=== PATIENT | female | born 1955 | race Two or more races ===

== ENCOUNTER 2018-08-21 01:01 | Inpatient (IN) | payer OTHER ==
[~2018-08-21] VITALS: Ht 165.1 cm; Wt 42.2 kg
[2018-08-21] VITALS (12 sets, daily range): BP systolic 107–129; BP diastolic 61–75
--- NOTE | 2018-08-21 01:10 | NUR ---
PHLEBOTOMY BEDSIDE FOR BLOOD DRAW
--- NOTE | 2018-08-21 01:12 | NUR ---
BEDSIDE FOR EVAL
[2018-08-21 01:23] LABS: CALCIUM, SERUM 7.9 mg/dL (8.5-10.1); CREATININE 1.9 mg/dL (0.6-1.3); POTASSIUM 3.7 mmol/L (3.5-5.1)
[2018-08-21 01:24] LABS: BASOPHILS # (AUTO) 0.1 /CMM (0.0-0.2); BASOPHILS % (AUTO) 0.6 % (0.0-2.0); EOSINOPHILS % (AUTO) 0.7 % (0.0-6.0); HEMATOCRIT 21 % (33-45); LYMPHOCYTES # (AUTO) 1.1 /CMM (0.8-4.8); LYMPHOCYTES % (AUTO) 8.2 % (20.0-44.0); MEAN CORPUSCULAR HGB CONC 31 g/dl (31.0-36.0); MEAN CORPUSCULAR VOLUME 74 fL (82-100); MONOCYTES # (AUTO) 0.8 /CMM (0.1-1.30); MONOCYTES % (AUTO) 6.1 % (2.0-12.0); NEUTROPHILS # (AUTO) 11.2 /CMM (1.8-8.9); NEUTROPHILS % (AUTO) 84.4 % (43.0-81.0); PLATELET COUNT (AUTO) 593 /CMM (150-450); WHITE BLOOD COUNT (AUTO) 13.3 K/uL (4.3-11.0)
[2018-08-21] MEDS ORDERED: IOHEXOL-300 100 ML VIAL IV ONE (01:25)
[2018-08-21] MEDS ORDERED: IV NS 0.9% 0 ML IV ONE (01:25)
[2018-08-21] MEDS ORDERED: CT SWABBABLE VALVE TRANS SET 1 EA INFUS.SET MC ONE (01:25)
--- NOTE | 2018-08-21 01:25 | NUR ---
[id number] FROM HOME C/C RUQ ABD PAIN RADIATING TO R SHOULDER SINCE 0900. PT DENIES CP, N/V/D. LBM 2 DAYS AGO, DENIES CONSTIPATION. PT STATES "IT HURTS MORE WHEN I BREATH". PT PLACED ON MONITOR AND POX. PT SAFETY AND COMFORT MEASURES IN PLACE. RR EVEN AND UNLABORED. PT NOTED TO BE IN MILD PAIN.
[2018-08-21 01:29] LABS: ALBUMIN 2.1 g/dL (3.4-5.0); BILIRUBIN,DIRECT 0.1 mg/dL (0.0-0.2); BILIRUBIN,TOTAL 0.1 mg/dL (0.2-1.0); TOTAL PROTEIN, SERUM 6.3 g/dL (6.4-8.2)
[2018-08-21 01:30] LABS: HEMOGLOBIN 6.7 g/dL (11.5-14.8)
[2018-08-21] MEDS ORDERED: MORPHINE SULFATE INJ 2 MG/ML DISP.SYRIN IV ONE (01:30)
[2018-08-21] MEDS ORDERED: IV NS 0.9% 1,000 ML BAG IV ONE (01:30)
[2018-08-21] MEDS ORDERED: MORPHINE SULFATE INJ 4 MG/ML DISP.SYRIN ONE (01:37)
[2018-08-21 02:44] LABS: LYMPHOCYTES % (MANUAL) 8 % (16-48); MONOCYTES % (MANUAL) 4 % (0-11.0); NEUTROPHILS % (MANUAL) 88 (42-76)
[2018-08-21] MEDS ORDERED: ACETAMINOPHEN 325 MG TABLET PO PRN (03:00)
[2018-08-21] MEDS ORDERED: MAG HYDROX/AL HYDROX/SIMETH 30 ML UDC PO PRN (03:00)
[2018-08-21] MEDS ORDERED: IV NS 0.9% 1,000 ML IV PRN (03:00)
[2018-08-21] MEDS ORDERED: TEMAZEPAM 15 MG CAPSULE PO PRN (03:00)
[2018-08-21] MEDS ORDERED: MAGNESIUM HYDROXIDE 30 ML UDC PO PRN (03:00)
[2018-08-21 03:32] LABS: APPEARANCE,URINE Clear (CLEAR); BILIRUBIN,URINE Negative (NEGATIVE); BLOOD, URINE Large Ery/uL (NEGATIVE); COLOR,URINE Yellow (YELLOW); KETONES,URINE Negative (NEGATIVE); LEUKOCYTE ESTERASE ,URINE Trace (NEGATIVE); NITRITE, URINE Positive (NEGATIVE); PH,URINE 6.5 (5.0-8.0); PROTEIN,URINE 30 mg/dl (NEGATIVE); UGLUCOSE Negative (NEGATIVE); UROBILINOGEN,URINE 0.2 EU/dL (0.2)
--- NOTE | 2018-08-21 03:55 | NUR ---
report given to juanita moffett for dona
[2018-08-21] MEDS ORDERED: CEFTRIAXONE 1GM BAG (ER ONLY) 1 GM/50 ML PIGGYBACK IV ONE (04:00)
[2018-08-21] MEDS ORDERED: CEFTRIAXONE 1GM BAG (ER ONLY) 50 ML IV ONE (04:04)
[2018-08-21 04:27] LABS: BACTERIA,URINE Many /HPF (None Seen); RBC,URINE 21-50 /HPF (0-2); SQUAMOUS EPITHELIAL CELL,UR Few /HPF (None Seen)
[2018-08-21] MEDS ORDERED: IV NS 0.9% 1,000 ML BAG IV STA (04:35)
[2018-08-21] MEDS ORDERED: METRONIDAZOLE 500MG/ NS 100ML 500 MG in PREMIX 1 EA IV SCH (05:00)
--- NOTE | 2018-08-21 05:00 | NUR ---
GENERAL SERVICE OFFICER ADMISSION NOTES [place] [facility] PATIENT IS ALERT AND ORIENTED X4, VERBALLY RESPONSIVE ABLE TO MAKE NEEDS KNOWN. BREATHING EVEN AND UNLABORED. NO SOB NOTED. TOLERATING ROOM AIR. CURRENTLY WITH NO COMPLAINTS OF PAIN OR DISCOMFORT. NO FACIAL GRIMACING. IV ON RIGHT AC G#18 INTACT AND PATENT. SKIN DRY AND WARM TO TOUCH. AFEBRILE. ORIENTED TO THE USE OF UNIT AMENITIES. BELONGINGS ACCOUNTED FOR. SAFETY MEASURES IN PLACE. CALL LIGHT WITHIN REACH. WILL CONTINUE TO MONITOR.
--- NOTE | 2018-08-21 05:09 | NUR ---
ALTERNATIVE DISPUTE RESOLUTION MEDIATOR NOTES PATIENT INFORMED OF SKIN ASSESSMENT WELL BLOOD TRANSFUSION. PER PATIENT "PLEASE NOT NOW, I HAVEN'T GOTTEN ANY SLEEP. TRY IN AN HOUR AGAIN." WILL COME BACK IN AN HOUR TO REASSESS.
--- NOTE | 2018-08-21 05:13 | NUR ---
COIL WRAPPER NOTES PER PATIENT, SHE DOES NOT TAKE ANY MEDS AT HOME.
[2018-08-21] MEDS ORDERED: METRONIDAZOLE 500MG/ NS 100ML 100 ML IV ONE (05:17)
--- NOTE | 2018-08-21 06:33 | NUR ---
PROGRAMS ASSISTANT NOTES 1 OF THE 2 PRBC TRANSFUSION STARTED. VSS. WILL CONTINUE TO MONITOR.
--- NOTE | 2018-08-21 06:40 | NUR ---
ANTITANK ASSAULT GUNNER NOTES WOKE PATIENT UP AND OFFERED TO DO SKIN ASSESSMENT AGAIN. PER PATIENT, SHE WOULD LIKE TO SLEEP STILL AND WOULD LIKE IT LATER ON. WILL ENDORSE TO ONCOMING NURSE.
[2018-08-21] MEDS: MORPHINE SULFATE INJ 2 MG/ML DISP.SYRIN IV PRN ×3 (07:14→23:52)
--- NOTE | 2018-08-21 07:23 | NUR ---
DINKEY LOCOMOTIVE ENGINEER NOTES BLOOD TRANSFUSION STILL TRANSFUSING. VSS. PATIENT ASLEEP. EASILY AROUSABLE. BREATHING EVEN AND UNLABORED ON ROOM AIR. PAIN MEDICATION GIVEN AT 0714. ALL OTHER NEEDS ATTENDED TO. SAFETY MEASURES IN PLACE. CALL LIGHT WITHIN REACH. WILL ENDORSE TO DAY NURSE.
--- NOTE | 2018-08-21 07:32 | NUR ---
DELIVERY DRIVER NOTES ENDORSED TO VINCE KWOK REGARDING ONGOING BLOOD TRANSFUSION.
[2018-08-21] MEDS ORDERED: PANT40TA2 PO (07:55)
[2018-08-21] MEDS ORDERED: POLY15DR40 EACHEYE (07:55)
[2018-08-21] MEDS ORDERED: CALC500T13 PO (07:55)
[2018-08-21] MEDS: PANTOPRAZOLE 40 MG VIAL IV SCH (09:00)
[2018-08-21] MEDS: ONDANSETRON HCL/PF 4 MG/2 ML VIAL IVP PRN ×2 (10:58→19:36)
[2018-08-21] MEDS ORDERED: POLYETHYLENE GLYCOL 3350 17 GM POWD.PACK PO PRN (17:30)
[2018-08-21 17:32] LABS: IRON, SERUM 10 ug/dl (50-175); TOTAL IRON BINDING CAPACITY 240 ug/dl (250-450)
[2018-08-21 17:44] LABS: FERRITIN 18 ng/mL (8-388)
--- NOTE | 2018-08-21 19:35 | NUR ---
RN MS OPENING NOTES RECEIVED BEDSIDE REPORT, PT IN BED AWAKE ALERT ORIENTED X4, BREATHING EVEN AND UNLABORED ON ROOM AIR. NO COMPLAINT OF PAIN OR DISCOMFORT AT THIS TIME. IV ACCESS ON THE RAC 18G WITH NS @75ML/HR. BED IN LOWEST LOCKED POSITION, CALL LIGHT WITHIN REACH AT ALL TIMES, WILL CONTINUE TO MONITOR FREQUENTLY.
[2018-08-21] MEDS: SUCRALFATE 1 G/10 ML UDC GT SCH ×2 (19:42→21:26)
[2018-08-22] MEDS: MORPHINE SULFATE INJ 2 MG/ML DISP.SYRIN IV PRN (04:38)
--- NOTE | 2018-08-22 06:24 | NUR ---
RN MS CLOSING NOTES PT REMAINS IN BED AWAKE ALERT ORIENTED X4, BREATHING EVEN AND UNLABORED ON ROOM AIR. NO COMPLAINT OF PAIN OR DISCOMFORT AT THIS TIME. IV ACCESS ON THE RAC 18G WITH NS @75ML/HR. BED IN LOWEST LOCKED POSITION, CALL LIGHT WITHIN REACH AT ALL TIMES, WILL ENDORSE TO DAY NURSE FOR LEWIS.
[2018-08-22 06:26] LABS: BASOPHILS % (AUTO) 0.4 % (0.0-2.0); EOSINOPHILS % (AUTO) 1.3 % (0.0-6.0); HEMATOCRIT 29 % (33-45); LYMPHOCYTES % (AUTO) 11.3 % (20.0-44.0); MEAN CORPUSCULAR HGB CONC 34 g/dl (31.0-36.0); MEAN CORPUSCULAR VOLUME 81 fL (82-100); MONOCYTES # (AUTO) 0.6 /CMM (0.1-1.30); MONOCYTES % (AUTO) 6.2 % (2.0-12.0); NEUTROPHILS # (AUTO) 7.3 /CMM (1.8-8.9); NEUTROPHILS % (AUTO) 80.8 % (43.0-81.0); PLATELET COUNT (AUTO) 477 /CMM (150-450); RED BLOOD CELL COUNT(AUTO) 3.53 MIL/uL (4.0-5.2)
[2018-08-22 06:45] LABS: HEMOGLOBIN 9.8 g/dL (11.5-14.8)
[2018-08-22 07:15] LABS: CALCIUM, SERUM 8.7 mg/dL (8.5-10.1); CREATININE 1.5 mg/dL (0.6-1.3); MAGNESIUM 1.7 mg/dL (1.8-2.4); PHOSPHORUS 3.6 mg/dL (2.5-4.9); POTASSIUM 3.9 mmol/L (3.5-5.1)
--- NOTE | 2018-08-22 07:25 | NUR ---
MS/RN OPENING NOTE THE PATIENT ALERT AND ORIENTED X4. IN ROOM AIR AND DENIES SOB. RESPIRATION REGULAR AND UNLABORED. DENIES PAIN. RAC G 18 PATENT AND SALINE LOCKED. BED LOW AND LOCKED. SIDE RAILS UP X3. CALL LIGHT WITHIN REACH. WILL CONTINUE TO MONITOR.
[2018-08-22] MEDS: PANTOPRAZOLE 40 MG VIAL IV SCH (08:01)
[2018-08-22] MEDS: SUCRALFATE 1 G/10 ML UDC GT SCH ×3 (08:01→17:30)
[2018-08-22 08:16] VITALS: BP 118/61
[2018-08-22] MEDS ORDERED: Magnesium 1GM/D5W 100ML PREMIX 100 ML IV SCH (10:32)
[2018-08-22] MEDS: ONDANSETRON HCL/PF 4 MG/2 ML VIAL IVP PRN (11:24)
[2018-08-22] MEDS ORDERED: SOD FERRIC GLUC 125 MG in IV NS 0.9% 100 ML IV SCH (14:00)
[2018-08-22] MEDS ORDERED: MAG30ORA PO (14:08)
[2018-08-22] MEDS ORDERED: FERR325T6 PO (14:08)
[2018-08-22] MEDS ORDERED: MAGN400O6 PO (14:08)
[2018-08-22] MEDS ORDERED: SUCR1ORA6 GT (14:08)
[2018-08-22 15:59] VITALS: BP 110/75
--- NOTE | 2018-08-22 19:20 | NUR ---
MS/RN NOTE THE PATIENT WAS SEEN BY TJ Martinez AND STATED THAT SHE DOES NOT CLEAR THE PATIENT TO GET DISCHARGED. MADE DR LEVY AWARE BUT DR LEVY STATED THAT MAY HOLD THE DISCHARGE ONLY IF GI IS PLANNING ON DOING EGD OR COLONOSCOPY. THE PATIENT IS MADE AWARE BUT THE PATIENT STATED THAT SHE WANTS TO GET DISCHARGED AND DOES NOT WANT TO STAY IN THE HOSPITAL. TJ SEGOVIA IS MADE AWARE. PATIENT IS MADE AWARE TO FOLLOW UP AT [facility] PER TJ SEGOVIA.
--- NOTE | 2018-08-22 19:36 | NUR ---
RN OPENING NOTES RECEIVED PATIENT AWAKE IN BED. PATIENT IS ALERT AND ORIENTED X4. PATIENT IS ON ROOM AIR. NO SIGNS OF RESPIRATORY DISTRESS. PATIENT DENIES SHORTNESS OF BREATH. PATIENT DENIES PAIN AT THIS TIME. IV SITE PATENT AND INTACT. SAFETY PRECAUTIONS IMPLEMENTED. CALL LIGHT WITHIN REACH. WILL CONTINUE TO MONITOR THROUGHOUT THE SHIFT. PATIENT IS READY TO GET DISCHARGED. PAPERWORK IS DONE AND SIGNED BY AM SHIFT.
--- NOTE | 2018-08-22 21:23 | NUR ---
TAKER OFF DRYING KILN NOTES PATIENT WAS DISCHARGED 2034. VITAL SIGNS WERE 137/84 P75 R 18 O2 97. PATIENT DISCHARGED IN STABLE CONDITION.
[2018-08-23] MEDS ORDERED: PANTOPRAZOLE 40 MG TABLET.DR PO SCH (07:30)
[2018-08-23] MEDS ORDERED: SOD FERRIC GLUC 125 MG in IV NS 0.9% 100 ML IV SCH (14:00)
== END 2018-08-22 20:38 | disposition home or self-care (01) | DRG 663 ==
LOC: ER 01:05 → TELE 03:58 → MED 10:45
PROC: 30233N1 Transfusion of Nonautologous Red Blood Cells into Peripheral Vein, Percutaneous Approach (ICD-10-PCS; principal; 2018-08-21)
DX: D50.9 Iron deficiency anemia, unspecified (principal); N17.0 Acute kidney failure with tubular necrosis; C15.9 Malignant neoplasm of esophagus, unspecified; C78.6 Secondary malignant neoplasm of retroperitoneum and peritoneum; C79.49 Secondary malignant neoplasm of other parts of nervous system; K21.9 Gastro-esophageal reflux disease without esophagitis; J43.9 Emphysema, unspecified; F17.210 Nicotine dependence, cigarettes, uncomplicated; H40.9 Unspecified glaucoma; Z88.0 Allergy status to penicillin; I25.10 Atherosclerotic heart disease of native coronary artery without angina pectoris; J21.9 Acute bronchiolitis, unspecified; K29.70 Gastritis, unspecified, without bleeding; N18.9 Chronic kidney disease, unspecified
CPT/HCPCS: 36415; 70450-TC; 71250-TC; 76700-TC; 80048-TC; 80061-TC; 80076-TC; 81000-TC; 82728-TC; 83540-TC; 83605-TC; 83690-TC; 83735-TC; 84100-TC; 84484-TC; 85025-TC; 85610-TC; 85730-TC; 86850-TC; 86921-TC; 87040-TC; 87081-TC; 87086-TC; 87186-TC; 92526; 92611-TC; A4216; C9113; G0378; J0696; J2270; J2405; J2916; J3475; J3490; J7030; J7040; J7050; P9016-BL; Q9967